=== PATIENT | female | born 1965 | race Caucasian/White ===

== ENCOUNTER 2023-06-03 20:14 | Outpatient (CLI) | payer SELFPAY | END 2023-06-03 23:59 | disposition critical access hospital (66) | LOC: EMS 20:14 | DX: F10.129 Alcohol abuse with intoxication, unspecified (principal); R42 Dizziness and giddiness; R55 Syncope and collapse; R41.3 Other amnesia; R32 Unspecified urinary incontinence; R00.0 Tachycardia, unspecified | CPT/HCPCS: A0425; A0427 ==

== ENCOUNTER 2023-06-03 21:00 | Emergency (ER) | payer BC, OTHER ==
[2023-06-03] MEDS ORDERED: THIAMINE INJ 100 MG, FOLIC ACID INJ 1 MG in SODIUM CHLORIDE 0.9% 1,000 ML IV STA (21:10)
--- NOTE | 2023-06-03 21:12 | ED Physician Documentation ---
History of Present Illness - Stated complaint Stated Complaint: ETOH - History obtained from History obtained from: Patient, EMS - Additonal information Additional information: 57yF with history of hypothyroidism, otherwise healthy, p/w alcohol intoxication. patient called 911 from her van in the [employer] parking lot in [place] where she states she has been the past couple days drinking 4 handles of vodka over the course of this time. patient does not normally drink this heavily per her report. She and her family are visiting from [place] and staying in [place]. PD PAST MEDICAL HISTORY - Allergies Allergies/Adverse Reactions: Allergies Allergy/AdvReac Type Severity Reaction Status Date / Time No Known Drug Allergies Allergy Verified 06/03/23 21:11 PD ED PE NORMAL - Vitals Vital signs reviewed: Yes - General General: Alert and oriented X 3, Other (clinically intoxicated) - HEENT HEENT: Atraumatic, PERRL, EOMI - Neck Neck: Supple, no meningeal sign - Cardiac Cardiac: Other (tachycardic rate, regular rhythm) - Respiratory Respiratory: No respiratory distress, Clear bilaterally - Abdomen Abdomen: Non tender, Non distended - Derm Derm: Normal color, Warm and dry - Neuro Neuro: Alert and oriented X 3 Results - Vitals Vitals: Vital Signs - 24 hr 06/03/23 06/03/23 21:09 23:28 Temperature 37.0 C Heart Rate 119 H Respiratory 18 17 Rate Blood Pressure 106/73 O2 Saturation 96 Oxygen O2 Source Room air - Labs Labs: Laboratory Tests 06/03/23 06/03/23 21:23 21:23 WBC 10.5 RBC 4.59 Hgb 14.7 Hct 43.9 MCV 95.6 MCH 32.0 H MCHC 33.5 RDW 13.3 Plt Count 187 MPV 10.8 Neut # (Auto) 9.8 H Lymph # (Auto) 0.4 L Phillips # (Auto) 0.2 Eos # (Auto) 0.0 Baso # (Auto) 0.0 Absolute Nucleated RBC 0.00 Nucleated RBC % 0.0 Sodium 137 Potassium 3.5 Chloride 100 L Carbon Dioxide 15 L Anion Gap 22.0 H BUN 20 Creatinine 0.9 Estimated GFR (MDRD) 64 L Glucose 89 Calcium 8.1 L Total Bilirubin 1.0 AST 86 H ALT 61 H Alkaline Phosphatase 45 Total Protein 6.9 Albumin 4.3 Globulin 2.6 Albumin/Globulin Ratio 1.7 Lipase 28 PD Medical Decision Making - ED course ED course: 57yF presents to the ED with acute alcohol intoxication. Plan to administer IVF, vitamins, obtain cbc/abdominal panel and monitor for sobriety. Labs largely unremarkable with exception of elevated anion gap and low bicarb, likely signifying a mild metabolic acidosis 2/2 binge drinking over the past couple days. patient expressing anxiety in the ed and was provided with atarax and then ativan. patient is concerned she is in alcohol withdrawal, however she does again confirm she had 4 handles of vodka in the past 2 days. denies prior mental health issues, denies other drug use. 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 12:30am - patient ambulatory with steady gait to the bathroom. plan to dc for outpatient f/u with pcp. advised drinking cessation. Departure - Departure Disposition: 01 Home, Self Care Clinical Impression: Alcohol abuse Condition: Stable Instructions: Addiction Alcohol Comments: You were seen in the emergency department for alcohol abuse. Please follow-up with your primary care provider. If you need help with alcohol addiction resources, consult the following: Support groups like Alcoholics Anonymous for the alcoholic, and Al-Anon Family Groups for the family and friends of alcoholics. Educational organizations like the National [place] on Alcoholism and Drug Dependence (NCADD), National [place] on Alcohol Abuse and Alcoholism (NIAAA), National [place] on Drug Abuse, Substance Abuse and Mental Health Services Administration, and DrugFree.org. 24-hour hotlines. Free treatment finder or other resources available on the [facility] site.
[2023-06-03 21:32] LABS: BASOPHILS % (AUTO) 0.2 %; HCT - HEMATOCRIT 43.9 % (37.0-47.0); HGB - HEMOGLOBIN 14.7 g/dL (12.0-16.0); LYMPHOCYTES # (AUTO) 0.4 10^3/uL (1.5-3.5); LYMPHOCYTES % (AUTO) 4.2 %; MEAN CORPUSCULAR HGB CONC 33.5 g/dL (32.0-36.0); MEAN CORPUSCULAR VOLUME 95.6 fL (81.0-99.0); MEAN PLATELET VOLUME 10.8 fL (7.9-10.8); MONOCYTES # (AUTO) 0.2 10^3/uL (0.0-1.0); MONOCYTES % (AUTO) 1.7 %; NEUTROPHILS # (AUTO) 9.8 10^3/uL (1.5-6.6); NEUTROPHILS % (AUTO) 93.5 %; PLT - PLATELET COUNT 187 10^3/uL (130-450); RED BLOOD COUNT 4.59 10^6/uL (4.20-5.40); RED CELL DISTRIBUTION WIDTH 13.3 % (12.0-15.0); WHITE BLOOD COUNT 10.5 x10^3/uL (4.8-10.8)
[2023-06-03 21:45] LABS: ALBUMIN 4.3 g/dL (3.2-5.5); ALBUMIN/GLOBULIN RATIO 1.7 (1.0-2.2); CALCIUM 8.1 mg/dL (8.5-10.3); CREATININE 0.9 mg/dL (0.4-1.0); POTASSIUM 3.5 mmol/L (3.5-5.0); TOTAL PROTEIN 6.9 g/dL (6.7-8.2)
[2023-06-03] MEDS ORDERED: THIAMINE 100 MG/1 ML 2 ML MDV ONE (21:47)
[2023-06-03] MEDS ORDERED: FOLIC ACID 5 MG/1 ML 10ML MDV ONE (21:47)
[2023-06-03] MEDS ORDERED: hydrOXYzine PAMOATE 25 MG CAPSULE PO STA (22:17)
[2023-06-03] MEDS ORDERED: LORazepam 0.5 MG TABLET PO STA (23:25)
[2023-06-04 01:05] VITALS: BP 112/67
== END 2023-06-04 00:58 | disposition home or self-care (01) ==
LOC: EDUNIT# → ED 21:00
DX: F10.129 Alcohol abuse with intoxication, unspecified (principal)
CPT/HCPCS: 36415; 80053; 83690; 85025; 96365; 96366; 99284; A9270; J3411